=== PATIENT | male | born 1975 | race Caucasian/White ===

== ENCOUNTER 2020-09-07 13:12 | Inpatient (IN) | payer OTHER ==
[2020-09-07 13:52] LABS: #Basophils 0.1 thou/uL (0.0-0.2); #Eosinphils 0.2 thou/uL (0.0-0.7); #Lymphocytes 2.7 thou/uL (1.20-3.40); #Monocytes 1.1 thou/uL (0.11-0.59); #Neutrophils 12.9 thou/uL (1.40-6.50); %Basophils 0.6 % (0.0-1.0); %Lymphocytes 16.1 % (21.0-51.0); %Monocytes 6.4 % (0.0-10.0); Hemoglobin 14.4 g/dL (14.0-18.0); Mean Corpuscular HGB CONC 34.5 g/dL (32.0-36.0); Mean Corpuscular Hemoglobin 31.4 pg (27.0-31.0); Mean Platelet Volume 7.9 fL (7.4-10.4); Platelet Count 268 thou/uL (130-400); RBC Distribution Width 11.4 % (11.5-14.5)
[2020-09-07] MEDS ORDERED: Cefepime 2 GM VIAL ONE (13:55)
[2020-09-07] MEDS ORDERED: Ibuprofen 200 MG TAB ONE (13:58)
[2020-09-07 14:04] LABS: Bacteria/HPF None Seen HPF (None Seen); Bilirubin Negative (Negative); Blood, Urine 2+ (Negative); Clarity Clear (Clear); Glucose, Urine (Dipstick) Normal (Negative); Ketone, Urine Negative (Negative); Leukocyte Negative Leu/uL (Negative); Mucous/LPF Rare LPF (<2+); Nitrite Negative (Negative); Protein, Urine (Dipstick) 30 mg/dL (Neg-Trace); Specific Gravity, Urine 1.026 (1.002-1.036); Squamous Epithelial 0-3 HPF (0-3); Urobilinogen Normal mg/dL (Less than 2); WBC/HPF 0-3 HPF (0-3); pH, Urine 5.5 (5.0-9.0)
[2020-09-07 14:12] LABS: Calcium Oxalate Crystals 2+ HPF (None Seen)
[2020-09-07 14:12] LABS: ALT (SGPT) 15 U/L (8-55); AST (SGOT) 17 U/L (5-34); Albumin 4.1 g/dL (3.5-5.0); Alkaline Phosphatase 56 U/L (40-110); Anion Gap 16 mmol/L (10-20); BUN (Urea Nitrogen) 9 mg/dL (8.9-20.6); Calc. Creatinine Clearance 0 mL/min (70-130); Carbon Dioxide 25 mmol/L (22-29); Chloride 99 mmol/L (98-107); Globulin 3.6 g/dL (2.4-3.5); Glucose 100 mg/dL (70-105); Potassium 4.2 mmol/L (3.5-5.1); Protein, Total 7.7 g/dL (6.0-8.3); Sodium 136 mmol/L (136-145)
[2020-09-07] MEDS ORDERED: Iopamidol-370 76% 500 ML 1 ML ONE (14:28)
[2020-09-07] MEDS ORDERED: Morphine 4 MG/ML VIAL ONE ×2 (14:40→17:12)
[2020-09-07] MEDS ORDERED: Clindamycin/D5W 900 mg/50 ml Premix Bag ONE (14:40)
[2020-09-07] MEDS ORDERED: Ondansetron PF 4 MG/2 ML Vial ONE (14:40)
[2020-09-07] MEDS ORDERED: Vancomycin 1 GM/200 ML BAG ONE (15:02)
[2020-09-07] MEDS ORDERED: Ondansetron ODT 4 MG TAB PO PRN (15:21)
[2020-09-07] MEDS ORDERED: Acetaminophen 325 MG TAB PO PRN (15:21)
[2020-09-07] MEDS ORDERED: hydrALAZINE 20 MG/ML VIAL SLOW IVP PRN (15:30)
--- NOTE | 2020-09-07 16:04 | CT ---
EXAM: Abdomen and pelvic CT scan with contrast: HISTORY: COMPARISON: 03/15/2012 FINDINGS: Lungs:Slight thickening of the distal esophagus wall, nonspecific, possibilities include infection, i nflammation, or less likely neoplasm. Liver: Evidence for some fatty changes of the liver with some fatty sparing adjacent to the gallbladd er. Gallbladder:Unremarkable. Common bile duct:Normal Pancreas:Unremarkable Spleen:Unremarkable. Adrenal glands:Unremarkable. Kidneys:No renal calculus or acute obstruction. No solid or cystic renal mass. There is evidence for minimal focal dilatation of the distal ileum/terminal ileum up to approximately 3 cm, nonspecific possibly some focal ileus without zander bowel wall thickening. Aorta:No evidence for aneurysm. Spine:No significant acute process. No CT evidence for acute appendicitis. The urinary bladder is unremarkable. Reproductive system:Unremarkable as visualized. Hernias:None No abscess, adenopathy, or abnormal fluid collection within the abdomen or pelvis. There is a focal subcutaneous mass measuring approximately 2.7 x 2.8 cm in AP and transverse dimensio ns and approximately 5 cm in craniocaudal length overlying the sacrum and coccyx junction region. This is nonspecific but certainly could represent a focal area of infection or inflammation. There is no associated gas. This could represent some type of a phlegmon. It does not have a well-defined capsule or central fluid density, although could still represent an abscess. IMPRESSION: Subcutaneous mass in the superficial soft tissues overlying the sacrococcygeal junction region, nonsp ecific but certainly could represent a focal inflammatory mass possibly even an abscess. Some focal dilatation of the terminal ileum without wall thickening, nonspecific. Minimal thickening of the distal esophagus wall, nonspecific as above. Minimal fatty changes in the liver.
--- NOTE | 2020-09-07 16:20 | HP ---
CONSULTATIONS ON THE CASE: Dr. Erick Eller, General Surgery. REASON FOR ADMISSION: Gluteal cleft abscess and cellulitis. HISTORY OF PRESENT ILLNESS: This is a very pleasant 45-year-old male gentleman with past medical history of benign essential hypertension, presents to the emergency room with a 4-day complaint of gluteal cleft abscess and cellulitis. According to the patient, he states his symptoms actually started a week back. 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 The patient presents to the ER where he was evaluated at bedside and a CT of the abdomen and pelvis was ordered to review the extension of abscess and cellulitis. I evaluated and reviewed the patient's cellulitis which looks extensive and depth was unable to be determined as there is some induration though. At this point of time, we have consulted General Surgical evaluation for plan of care with possible surgical drainage. The patient has been in good state of health. Never had any prior surgeries. No complaints of chest pain, shortness of breath, abdominal pain, fever, rigors, chills, nausea, vomiting, diaphoresis, blurring of vision, tingling, numbness, burning micturition, constipation, claudication, anxiety, depression, hematuria, hematochezia, cough, expectoration, syncope, seizures, PND, or orthopnea has been noted at this point of time. There is elevated white blood cell count as reviewed with some left shift. PAST MEDICAL HISTORY: Benign essential hypertension, obesity. ALLERGIES: NO KNOWN DRUG ALLERGIES. SOCIAL HISTORY: The patient denies tobacco, alcohol, or recreational drug abuse. FAMILY HISTORY: No history of coronary artery disease or hypertension. MEDICATIONS: At home, the patient takes antihypertensive medication. Does not remember the name. REVIEW OF SYSTEMS: Except as documented, all systems reviewed and negative. PHYSICAL EXAMINATION: GENERAL: This is a 45-year-old male gentleman, lying in his hospital bed on his side with pain in the gluteal area. VITAL SIGNS: Has a heart rate of 70 per minute, respiratory rate of 16 per minute, saturation of 100% on room air, has a blood pressure of 135/60 mmHg. Has an airway which is clear. HEENT: Atraumatic, normocephalic. NECK: Supple. No bruits. No lymphadenopathy. CVS: S1 and S2. No abnormal rhythms or murmurs. CHEST: Bilateral air entry present. No rhonchi. No wheeze. ABDOMEN: Soft, nontender. Bowel sounds are present. No organomegaly. EXTREMITIES: No cyanosis. No icterus. No clubbing. NEUROLOGIC: The patient is alert and oriented. No focal motor or sensory deficits noted. HEME: No ecchymosis or petechiae. PSYCH: No depression or anxiety. DIAGNOSTIC STUDIES: WBC 17,000, hemoglobin 14.4, hematocrit 41.9, platelets are 268. Sodium 136, potassium 4.2, chloride 99, carbon dioxide 25, BUN 9, creatinine 1.24. Lactic acid is 0.9. AST 17, ALT 15, globulin 3.6. Urinalysis has been reviewed. CT of the abdomen and pelvis done, awaiting official report. ASSESSMENT: 1. Gluteal cleft cellulitis with abscess. The patient currently on IV Zosyn. Blood cultures have been sent along with CT of the abdomen and pelvis. Awaiting official report. We have consulted Dr. Erick Eller, general surgical surgeon for evaluation of the patient's abscess and possible procedure. We will keep the patient n.p.o. for now until further review by General Surgery. 2. Benign essential hypertension. I will start the patient on p.r.n. hydralazine for blood pressure control in case it is uncontrolled. 3. Obesity. PLAN: Discussed in detail of the diagnosis, treatment, and followup with the patient. Advised the patient about general surgical evaluation. Advised about IV antibiotic therapy at this point of time and blood cultures. I expect the patient to be admitted to the hospitalist services more than two midnights. Advanced directives are full code. Discharge planning likely 09/09/2020 with oral antibiotic therapy. Job ID: [id number]
[2020-09-07] MEDS ORDERED: Lidocaine 1% w/Epinephrine 1:100K 20 ML VIAL ONE ×2 (16:26→16:36)
[2020-09-07] MEDS ORDERED: Boostrix 0.5 ML (Tdap) VIAL ONE (18:17)
[2020-09-07 19:35] VITALS: BMI 38.3
[2020-09-07] MEDS: Piperacillin/Tazobactam 3.375 GM in Sodium Chloride 0.9% 100 ML IVPB SCH (19:59)
[2020-09-08] MEDS: Piperacillin/Tazobactam 3.375 GM in Sodium Chloride 0.9% 100 ML IVPB SCH ×4 (00:12→18:21)
[2020-09-08 04:09] LABS: #Eosinphils 0.3 thou/uL (0.0-0.7); #Lymphocytes 1.9 thou/uL (1.20-3.40); #Monocytes 0.8 thou/uL (0.11-0.59); %Basophils 0.4 % (0.0-1.0); %Eosinophils 2.5 % (0.0-10.0); %Neutrophils 73.2 % (42.0-75.0); Hemoglobin 13.2 g/dL (14.0-18.0); Mean Corpuscular HGB CONC 32.5 g/dL (32.0-36.0); Mean Corpuscular Volume 92.2 fL (78.0-98.0); Mean Platelet Volume 7.8 fL (7.4-10.4); Platelet Count 231 thou/uL (130-400); RBC Distribution Width 11.3 % (11.5-14.5); Red Blood Cell (RBC) Count 4.42 mill/uL (4.70-6.10)
[2020-09-08 04:33] LABS: ALT (SGPT) 51 U/L (8-55); AST (SGOT) 35 U/L (5-34); Albumin 3.6 g/dL (3.5-5.0); Alkaline Phosphatase 55 U/L (40-110); Anion Gap 13 mmol/L (10-20); BUN (Urea Nitrogen) 9 mg/dL (8.9-20.6); Bilirubin, Total 1.1 mg/dL (0.2-1.2); Calc. Creatinine Clearance 151 mL/min (70-130); Calcium 8.8 mg/dL (7.8-10.44); Carbon Dioxide 28 mmol/L (22-29); Chloride 101 mmol/L (98-107); Globulin 3.1 g/dL (2.4-3.5); Glucose 116 mg/dL (70-105); Potassium 4.1 mmol/L (3.5-5.1); Protein, Total 6.7 g/dL (6.0-8.3); Sodium 138 mmol/L (136-145)
[2020-09-08 07:38] LABS: SARS-CoV-2 MS2 Positive; SARS-CoV-2 N Gene Negative; SARS-CoV-2 S Gene Negative; SARS-CoV-2 by NAA Not Detected (NotDetected); SARS-CoV-2 orf1ab Negative
[2020-09-08] MEDS ORDERED: FLU VACC QS2020-21(6MOS UP)/PF 60 MCG/0.5 ML SYRINGE IM ONE (09:00)
[2020-09-08 09:20] LABS: #Eosinphils 0.3 thou/uL (0.0-0.7); #Lymphocytes 2.4 thou/uL (1.20-3.40); #Monocytes 0.7 thou/uL (0.11-0.59); #Neutrophils 7.6 thou/uL (1.40-6.50); %Basophils 0.3 % (0.0-1.0); %Eosinophils 3.1 % (0.0-10.0); %Lymphocytes 21.7 % (21.0-51.0); %Monocytes 6.5 % (0.0-10.0); %Neutrophils 68.5 % (42.0-75.0); Mean Corpuscular HGB CONC 33.3 g/dL (32.0-36.0); Mean Corpuscular Hemoglobin 31.1 pg (27.0-31.0); Mean Corpuscular Volume 93.5 fL (78.0-98.0); Mean Platelet Volume 7.7 fL (7.4-10.4); Platelet Count 273 thou/uL (130-400); RBC Distribution Width 11.2 % (11.5-14.5); Red Blood Cell (RBC) Count 4.49 mill/uL (4.70-6.10); White Blood Cell (WBC) Count 11.1 thou/uL (4.8-10.8)
--- NOTE | 2020-09-08 13:27 | PDOC.HOSPP ---
- Subjective Encounter Date: 09/08/20 Encounter Time: 12:30 Subjective: Patient is sleeping. Not responding for any verbal stimulation. I seen his gluteal area dressing shows discharges. He is n.p.o.t for possible IND again. - Objective Vital Signs & Weight: Vital Signs (12 hours) Temp Pulse Resp BP BP Pulse Ox 09/08/20 08:00 98.4 F 84 18 129/84 98 09/08/20 04:00 98.9 F 84 20 141/76 H 93 L Weight Weight 259 lb 11.2 oz I&O: 09/07/20 09/08/20 09/09/20 06:59 06:59 06:59 Intake Total 780 Balance 780 Result Diagrams: 09/08/20 09:10 09/08/20 03:53 Hospitalist ROS - Medication Medications: Active Medications Generic Name Dose Route Start Last Admin Trade Name Freq PRN Reason Stop Dose Admin Piperacillin Sod/Tazobactam 100 mls @ 200 mls/hr 09/07/20 18:00 09/08/20 11:12 Sod 3.375 gm/ Sodium Chloride IVPB 100 mls Q6HR SCAR Administration - Exam General - other findings: Sleeping Eye: PERRL, anicteric sclera ENT: normocephalic atraumatic Neck: supple Heart: RRR Respiratory: CTAB, normal chest expansion Gastrointestinal: soft, normal bowel sounds Skin - other findings: Dressing on the gluteal area shows some discharge. Neurological: cranial nerve grossly intact, no focal deficits Hosp A/P - Plan gluteal cleft cellulitis and abscess. -Continue with the vancomycin and Zosyn. -General surgery consulted Leukocytosis due to above. It is trending down. Hypertension Patient is not on any home medications. Hydralazine as needed provided Covid negative
[2020-09-08] MEDS ORDERED: Vancomycin 1 GM in Premix Bag 1 BAG IVPB SCH (13:30)
[2020-09-08] MEDS: NS 0.9% w/ 20 MEQ KCL 1,000 ML IV SCH (16:56)
[2020-09-08] MEDS: Vancomycin 1 GM in Premix Bag 1 BAG IVPB SCH (20:19)
[2020-09-09] MEDS: Piperacillin/Tazobactam 3.375 GM in Sodium Chloride 0.9% 100 ML IVPB SCH ×3 (00:40→12:43)
[2020-09-09 04:31] LABS: Anion Gap 13 mmol/L (10-20); BUN (Urea Nitrogen) 10 mg/dL (8.9-20.6); Calc. Creatinine Clearance 171 mL/min (70-130); Calcium 8.6 mg/dL (7.8-10.44); Carbon Dioxide 27 mmol/L (22-29); Chloride 103 mmol/L (98-107); Glucose 102 mg/dL (70-105); Potassium 4.1 mmol/L (3.5-5.1); Sodium 139 mmol/L (136-145)
[2020-09-09 08:08] VITALS: BP 147/95; TEMP 97.5
[2020-09-09] MEDS: NS 0.9% w/ 20 MEQ KCL 1,000 ML IV SCH (10:33)
[2020-09-09] MEDS: Vancomycin 1 GM in Premix Bag 1 BAG IVPB SCH (10:42)
--- NOTE | 2020-09-09 12:22 | CON ---
DATE OF CONSULTATION: 09/09/2020 CHIEF COMPLAINT: Infected pilonidal cyst. HISTORY: The patient is a 45-year-old male with a several week history of enlarging soft tissue swelling of his sacral area. He came to the emergency room on Wednesday, where he was found to have an abscess of a pilonidal cyst which was drained in the emergency room, and for some reason he was admitted, but he says he is feeling fine. They kept him n.p.o. the last two nights, thinking that he need more surgery, but it is draining and he is having no pain. He wants to go home. PHYSICAL EXAMINATION: VITAL SIGNS: His temperature is 97.5, pulse 78, blood pressure 140/90. LUNGS: Clear. HEART: Regular rate and rhythm. ABDOMEN: Soft, nondistended, nontender. He has about 1 cm incision in an abscess cavity of the sacrum that has drained some sanguinopurulent fluid. There was a wick and I pulled the wick. I cannot really express any more fluctuance, so he has a pilonidal abscess that is drained. I would recommend he go home, sitz baths. He needs at least two weeks of oral antibiotics. If it seems like it is getting worse or recurring, he needs to come see me in the office. Job ID: [id number]
--- NOTE | 2020-09-10 05:23 | DIS ---
DATE OF ADMISSION: 09/07/2020 DATE OF DISCHARGE: 09/09/2020 CONSULTANTS: Dr. Eller of General Surgery. MEDICATIONS: Reconciled at discharge. New medications; 1. Augmentin 875 one tablet every 12 hours for 7 days. 2. Tylenol 325 mg two tablets every 4 hours as needed for pain, not to exceed 4000 mg per day. FINAL DIAGNOSIS: Gluteal cleft abscess, status post I and D with overlying cellulitis. SECONDARY DIAGNOSES: 1. Essential hypertension, not optimally controlled. 2. Minimal fatty changes in the liver. HISTORY OF PRESENT ILLNESS: Mr. Ruiz is a 45-year-old male, who presented to the emergency room with four days of gluteal cleft swelling and pain. He was found to have an abscess with overlying cellulitis, and hospitalist called for admission. HOSPITAL COURSE: The patient has been managed on Zosyn and vancomycin, and the abscess has been draining. Dr. Eller evaluated the patient today and recommended discharge to home. We will continue antibiotics in the outpatient setting as well as the patient was given wound care instructions by Dr. Eller to encourage this wound to continue draining. Followup is available with Dr. Eller in the outpatient setting if needed. The patient has a history of hypertension, is not currently on medications. He is encouraged to get back in touch with his primary care provider and resume medications as his blood pressures have ranged from the 130s to 160s systolic here. The patient is overall feeling well. He does meet criteria for discharge to home. PHYSICAL EXAMINATION: VITAL SIGNS: Temperature 97.5, pulse 78, respirations 18, sat 99% on room air, and blood pressure 147/95. GENERAL: Awake, alert, responsive, not in apparent distress. Able to speak in full sentences. LUNGS: Clear to auscultation bilateral. No audible wheezing, rhonchi, or rales. HEART: Normal S1 and S2. No audible murmurs. ABDOMEN: Soft with present bowel sounds. Nontender. Nondistended. MARTI FINDINGS AND TEST RESULTS: CBC today 11.1, 14, 41.9, and 273, white blood cell count on admission was 17. Chemistry; 139, 4.1, 103, 27, 10, 0.9, and 202. LFTs normal. Urinalysis; present protein, 4 to 6 red blood cells, and 2+ calcium oxalate crystals. COVID test was negative. CT abdomen and pelvis performed on September 07, which shows subcutaneous mass in the superficial soft tissues overlying the sacrococcygeal junction region, nonspecific, but could represent a focal inflammatory mass, possibly even an abscess. Some focal dilatation of the terminal ileum without wall thickening, minimal thickening of the distal esophagus, which is nonspecific and minimal fatty changes in the liver. DIET: Heart healthy. ACTIVITY: As tolerated. FOLLOW-UP: 1. Recommend patient obtain a Primary Care Provider and follow up as soon as possible for review of this hospitalization and management of high blood pressure. 2. Follow up with Dr. Eller if this worsens or does not improve within a week. Wound care per the instructions of Dr. Eller. DISCHARGE DISPOSITION: Home. CODE STATUS: Full. Reviewed with the patient this hospitalization, the importance of followup especially with regard to the uncontrolled high blood pressure and the seek care precautions. He demonstrates understanding. TIME SPENT: Total time coordinating discharge is 30 minutes. Job ID: [id number] MTDD
--- NOTE | 2020-09-12 06:16 | PQF ---
CLINICAL DOCUMENTATION CLARIFICATION FORM: Dear : Margaret Cardoza Date / Time: 09/12/20 06 Please exercise your independent, professional judgment in responding to the clarification form. Clinical indicators are provided on the bottom of this form for your review Please check appropriate box(es) to clarify if the following diagnosis has been ruled in our ruled out: Sepsis [ ] Ruled in diagnosis [ ] Continue to treat [ ] Resolved [xx ] Ruled out diagnosis [ ] Improving [ ] Cannot rule out diagnosis [ ] Other diagnosis, please specify: [ ] Unable to determine Physician Signature: Date/Time: For continuity of documentation, please document condition throughout progress notes and discharge summary. Thank You To be completed by CDI/Coding staff for physician review: Present Clinical Indicators - Signs / Symptoms / Labs Results and Location in Medical Record [X] WBC 17.0, Plt count 268, Neutrophils 76.0, Lactic acid 0.9 Laboratory 09/07 [X] Blood culture : No growth at 48 hrs Microbiology 09/07 [X] BP 132/81, Pulse 97, Resp 19, Temp 99.7 Vital signs 09/07 [X] SIRS scoring: Pt did meet criteria ED p2 09/07 [X] Pilonical cyst with abscess ED p11 09/07 [X] Sepsis ED p11 09/07 [X] Gluteal abscess and cellulitis H&P p1 09/07 Dr Gardner Present Risk Factors Results and Location in Medical Record [X] Pilonical cyst with abscess ED p11 09/07 [X] Gluteal abscess and cellulitis H&P p1 09/07 Dr Gardner [X] HTN H&P p1 09/07 Dr Gardner [X] Obesity H&P p1 09/07 Dr Gardner Present Treatments Results and Location in Medical Record [X] IV Vancomycin 1 gm DEC 13 [X] IV Zosyn 3.375 gm DEC 13 [X] IV Cefepime 2 gm DEC 13 [X] IV Clindamycin 900 mg DEC 13 [X] Sepsis protocol ED p10 09/07 [X] I&D of abscess ED p10 09/07 CDS/General Dentist Signature: Genesis Ronquillo Phone #: [phone] Date/Time: 09/12/2020 0615 This is a permanent part of the Medical Record MTDD
--- NOTE | 2020-09-13 06:04 | PQF ---
CLINICAL DOCUMENTATION CLARIFICATION FORM: Dear : Cecy Hand Date / Time: 09/13/20 1496 Please exercise your independent, professional judgment in responding to the clarification form. Clinical indicators are provided on the bottom of this form for your review In your clinical opinion based on clinical findings below, can you please identify the depth of I&D for Pilonidal cyst with abscess: Please check appropriate box(es): Depth: [ ] Skin [ ] Subcutaneous [ ] Fascia [ ] Muscle [ ] Tendon [ ] Bone [ ] Other procedure, please specify [ ] Unable to determine Physician Signature: Date/Time: For continuity of documentation, please document condition throughout progress notes and discharge summary. Thank You. To be completed by CDI/Coding staff for physician review: Present Clinical Indicators - Signs / Symptoms / Labs Results and Location in Medical Record [ X] incision and drainage indicated for cutaneous abscess ED p109/07 [ X] Incision and drainage of pilonidal cyst, simple, incision was made over area of fluctuance, explored for loculations, Irrigation, packed with sterile gauze, drained pus ED p109/07 Present Risk Factors Results and Location in Medical Record [X] Pilonical cyst with abscess ED p109/07 [X] Gluteal abscess and cellulitis H&P p1 09/07 Dr Gardner [X] Obesity H&P p1 09/07 Dr Gardner Present Treatments Results and Location in Medical Record [X] IV Vancomycin 1 gm DEC 13 [X] IV Zosyn 3.375 gm DEC 13 [X] IV Cefepime 2 gm DEC 13 [X] IV Clindamycin 900 mg DEC 13 [X] I&D of abscess ED p10 09/07 CDS/Church History Professor Signature: Genesis Martell Shima Phone #: [phone] Date/Time: 09/13/2020 This is a permanent part of the Medical Record [facility]
== END 2020-09-09 13:15 | disposition home or self-care (01) | DRG 603 ==
LOC: ERS 13:12 → ONC 15:21
PROVIDERS: ADMIT Student in an Organized Health Care Education/Training Program; ATTEND Internal Medicine
PROC: 0H98XZZ Drainage of Buttock Skin, External Approach (ICD-10-PCS; principal; 2020-09-07)
DX: L02.31 Cutaneous abscess of buttock (principal); L03.317 Cellulitis of buttock; Z20.828 Contact with and (suspected) exposure to other viral communicable diseases; Z23 Encounter for immunization; K76.0 Fatty (change of) liver, not elsewhere classified; E66.9 Obesity, unspecified; I10 Essential (primary) hypertension; Z68.38 Body mass index [BMI] 38.0-38.9, adult
CPT/HCPCS: 10080; 36415; 74177; 80048; 80053; 81003; 81015; 83605; 85025; 87040; 87635; 90471; 90662; 90715; 96365; 96367; 96375; G0008; J0692; J2270; J2405; J2543; J3370; J3480; J3490; Q9967; U0003